=== PATIENT | female | born 1955 | race Caucasian/White ===

== ENCOUNTER 2020-04-24 07:36 | Day surgery (SDC) | payer BC ==
[~2020-04-24 07:36] MED LIST: ESTMET; Provera2.5 MG
== END 2020-04-24 22:37 | disposition home or self-care (01) ==
LOC: MOI MAM 07:36
DX: C50.812 Malignant neoplasm of overlapping sites of left female breast (principal); Z17.0 Estrogen receptor positive status [ER+]
CPT/HCPCS: 19083; 77065; A4648

== ENCOUNTER 2020-05-29 07:42 | Day surgery (SDC) | payer BC ==
[~2020-05-29 07:42] MED LIST changes: +ASPI81CH PO; +CALCIUM PO; +CENTRUM SILVER1 EAC2 PO; +DYAZIDE 37.5-21 EACH PO; +LOSA25 PO
== END 2020-05-29 22:36 | disposition home or self-care (01) ==
LOC: MOI US 07:42
DX: C50.312 Malignant neoplasm of lower-inner quadrant of left female breast (principal); Z79.82 Long term (current) use of aspirin; Z79.899 Other long term (current) drug therapy
CPT/HCPCS: 19285; 77065

== ENCOUNTER 2020-06-04 10:34 | Day surgery (SDC) | payer BC ==
[~2020-06-04] VITALS: Ht 175.3 cm; Wt 77.6 kg
--- NOTE | 2020-06-04 10:55 | NUR ---
Ambulatory in Day Surgery History, Chart, Medications and Allergies reviewed before start of procedure.Patient confirms NPO status and agrees with scheduled surgery. Patient States Post-Procedure ride home has been arranged.
--- NOTE | 2020-06-04 13:18 | NUR ---
Discharge instructions reviewed with patient. Patient verbalizes understanding. Copy given to patient to take home. Patient States Post-Procedure ride home has been arranged. Discharged via wheelchair to private car for ride home.
== END 2020-06-04 13:16 | disposition home or self-care (01) ==
LOC: ORSCMMR 10:34 → ORD 12:00 → ORSCMMR 13:16
PROVIDERS: Surgery
PROC: 0WH803Z Insertion of Infusion Device into Chest Wall, Open Approach (ICD-10-PCS; principal; 2020-06-04 12:00)
DX: C50.312 Malignant neoplasm of lower-inner quadrant of left female breast (principal); I10 Essential (primary) hypertension; Z79.899 Other long term (current) drug therapy; Z79.82 Long term (current) use of aspirin
CPT/HCPCS: A9270-GY; C1728; J0690; J2250; J2704; J7120

== ENCOUNTER 2023-09-08 22:25 | Inpatient (IN) | payer OTHER ==
[~2023-09-08] VITALS: Ht 175.3 cm; Wt 72.4 kg
[2023-09-09] VITALS (15 sets, daily range): BP systolic 99–147; BP diastolic 68–88
[2023-09-09] MEDS ORDERED: ANASTROZOLE1 M7 PO (04:15)
[2023-09-09 06:37] LABS: BASOPHILS ABSOLUTE AUTO 0.09 K/mm3 (0.00-0.23); BASOPHILS PERCENT AUTO 1 % (0-2); EOSINOPHILS ABSOLUTE AUTO 0.01 K/mm3 (0.00-0.68); EOSINOPHILS PERCENT AUTO 0 % (0-6); Hematocrit 38.2 % (33.0-51.0); Hemoglobin 13.7 g/dL (11.5-16.0); IMMATURE GRAN ABSOLUTE AUTO 0.02 K/mm3 (0.00-0.10); IMMATURE GRAN PERCENT AUTO 0 % (0-1); LYMPHOCYTES ABSOLUTE AUTO 0.98 K/mm3 (0.84-5.20); LYMPHOCYTES PERCENT AUTO 10 % (21-46); MONOCYTES ABSOLUTE AUTO 0.58 K/mm3 (0.16-1.47); MONOCYTES PERCENT AUTO 6 % (4-13); Mean Corpuscular HGB 32.5 pg (26.0-34.0); Mean Corpuscular HGB Conc 35.9 g/dL (31.5-36.5); Mean Corpuscular Volume 91 fL (80-100); Mean Platelet Volume 10.6 fL (9.1-12.4); NEUTROPHILS ABSOLUTE AUTO 8.29 K/mm3 (1.96-9.15); NEUTROPHILS PERCENT AUTO 83 % (41-73); Platelet Count 266 K/mm3 (150-400); RDW Coefficient Variation 12.1 % (11.7-14.2); RDW Standard Deviation 40.1 fL (35.1-46.3); Red Blood Cell Count 4.22 M/mm3 (3.80-5.20); White Blood Cell Count 9.97 K/mm3 (4.00-11.30)
[2023-09-09 06:46] LABS: International Normalized Ratio 0.94; Prothrombin Time Results 9.9 Sec (9.7-11.5)
[2023-09-09 07:09] LABS: Albumin, Blood 3.3 g/dL (3.4-5.0); Albumin/Globulin Ratio 0.9 (0.8-1.8); Bilirubin, Total 0.5 mg/dL (0.1-1.0); Bun/Creatinine Ratio 21.4 (12.0-20.0); Calcium, Blood 8.9 mg/dL (8.5-10.1); Creatinine, Blood 0.47 mg/dL (0.40-1.00); Globulin, Blood 3.6 g/dL (2.2-4.0); Potassium, Blood 3.5 mmol/L (3.5-5.5); Total Protein, Blood 6.9 g/dL (6.4-8.2)
--- NOTE | 2023-09-09 17:48 | NUR ---
SHIFT SUMMARY S/P R HIP NAILING, AQUACEL X2 CDI. A&OX4, VSS/RA, YVETTE PO, VOIDING, AMB SBA FWW/GB - TO BRP AND UP TO CHAIR, PAIN MANAGED, IV SL AND ABX PER EMAR. WILL REPORT TO ONCOMING NOC RN.
[2023-09-10 01:35] VITALS: BP 131/79
--- NOTE | 2023-09-10 03:31 | NUR ---
SHIFT SUMMARY NOC. PT POD 1 FOR RIGHT HIP NAILING. PT A/O X4, AQUACEL X2 C/D/I. PT VOIDING AND TOLERATING PO. PT MEDICATED FOR PAIN WITH RELIEF OF SX. PT RESTED WITH EYES CLOSED AND CALL LIGHT IN REACH.
[2023-09-10 05:18] LABS: BASOPHILS ABSOLUTE AUTO 0.06 K/mm3 (0.00-0.23); BASOPHILS PERCENT AUTO 1 % (0-2); EOSINOPHILS ABSOLUTE AUTO 0.25 K/mm3 (0.00-0.68); EOSINOPHILS PERCENT AUTO 4 % (0-6); Hematocrit 31.2 % (33.0-51.0); Hemoglobin 10.7 g/dL (11.5-16.0); IMMATURE GRAN ABSOLUTE AUTO 0.02 K/mm3 (0.00-0.10); IMMATURE GRAN PERCENT AUTO 0 % (0-1); LYMPHOCYTES ABSOLUTE AUTO 1.82 K/mm3 (0.84-5.20); LYMPHOCYTES PERCENT AUTO 28 % (21-46); MONOCYTES ABSOLUTE AUTO 0.68 K/mm3 (0.16-1.47); MONOCYTES PERCENT AUTO 10 % (4-13); Mean Corpuscular HGB 31.8 pg (26.0-34.0); Mean Corpuscular HGB Conc 34.3 g/dL (31.5-36.5); Mean Corpuscular Volume 93 fL (80-100); Mean Platelet Volume 10.7 fL (9.1-12.4); NEUTROPHILS ABSOLUTE AUTO 3.73 K/mm3 (1.96-9.15); NEUTROPHILS PERCENT AUTO 57 % (41-73); Platelet Count 216 K/mm3 (150-400); RDW Standard Deviation 40.8 fL (35.1-46.3); Red Blood Cell Count 3.37 M/mm3 (3.80-5.20); White Blood Cell Count 6.56 K/mm3 (4.00-11.30)
[2023-09-10 05:42] LABS: Bun/Creatinine Ratio 27.8 (12.0-20.0); Calcium, Blood 8.7 mg/dL (8.5-10.1); Creatinine, Blood 0.61 mg/dL (0.40-1.00); Potassium, Blood 3.6 mmol/L (3.5-5.5)
[2023-09-10 07:54] VITALS: BP 115/73
[2023-09-10 14:13] VITALS: BP 135/84
--- NOTE | 2023-09-10 15:28 | NUR ---
SHIFT SUMMARY PT A&OX4, VSS/RA, YVETTE PO, VOIDING/BRP, PAIN MANAGED WITH TORADOL/TYLENOL, AMB SBA FWW/GB, UP TO CHAIR T/O SHIFT, PHYSICAL THERAPY EVAL'D REC HOME W/HH. WILL REPORT TO ONCIMMANUEL FAIR RN.
[2023-09-10 19:45] VITALS: BP 130/74
[2023-09-11 02:44] VITALS: BP 127/77
[2023-09-11 04:31] LABS: Hematocrit 29.1 % (33.0-51.0); Hemoglobin 10.2 g/dL (11.5-16.0)
--- NOTE | 2023-09-11 06:17 | NUR ---
SHIFT SUMMARY NOC. PT POD 2 FOR R HIP NAILING. PT A/O X4, AQUACEL X2 C/D/I WITH SCANT SEROSANG DRAINAGE AT END OF SHIFT. PT MEDICATED FOR PAIN WITH REPORTED RELIEF OF SX. PT VOIDING, TOLERATING PO AND AMBULATES WITH FWW AND SBA TO THE BR. PT RESTED WITH EYES CLOSED AND CALL LIGHT IN REACH.
[2023-09-11 07:15] VITALS: BP 113/76
[2023-09-11] MEDS ORDERED: ACET325 PO (09:54)
[2023-09-11] MEDS ORDERED: OXYC5 PO (09:54)
[2023-09-11] MEDS ORDERED: DOCU100 PO (09:54)
[2023-09-11] MEDS ORDERED: XARELTO10 M5 PO (09:55)
--- NOTE | 2023-09-11 10:26 | NUR ---
hard script sent with friend for pain medications.
--- NOTE | 2023-09-11 12:20 | NUR ---
DISCHARGE POD 2 R HIP NAILING PAIN CONTROLLED WELL PER EMAR. PT AMBULATING WELL WITH WALKER AND GB. DRESSINGS CHANGED PRIOR TO DISCHARGE. SCRIPTS SENT WITH PATIENT. NO FURTHER QUESTIONS AT THIS TIME.
== END 2023-09-11 12:23 | disposition home health service (06) | DRG 481 ==
LOC: ER 22:25 → SURS 09-09 01:25 → MEDS 09-09 01:25 → SURS 09-09 03:54
PROVIDERS: Family Medicine; Orthopaedic Surgery Sports Medicine; ADMIT Student in an Organized Health Care Education/Training Program
PROC: 0QS636Z Reposition Right Upper Femur with Intramedullary Internal Fixation Device, Percutaneous Approach (ICD-10-PCS; principal; 2023-09-09 09:15)
DX: S72.141A Displaced intertrochanteric fracture of right femur, initial encounter for closed fracture (principal); D62 Acute posthemorrhagic anemia; D64.89 Other specified anemias; I10 Essential (primary) hypertension; C50.912 Malignant neoplasm of unspecified site of left female breast; F10.90 Alcohol use, unspecified, uncomplicated; Y90.0 Blood alcohol level of less than 20 mg/100 ml; W01.0XXA Fall on same level from slipping, tripping and stumbling without subsequent striking against object, initial encounter; Y92.59 Other trade areas as the place of occurrence of the external cause; Z79.82 Long term (current) use of aspirin; Z79.811 Long term (current) use of aromatase inhibitors
CPT/HCPCS: 36415; 73502; 73552; 80048; 80053; 83735; 85014; 85018; 85025; 85610; 96365; 96366; 96375; 96376; 97110; 97116; 97161; 97166; 97530; 97535; 99284-25; A9270; C1713; C1769; G0378; J0690; J1885; J2371; J2405; J2704; J3010; J7120

== ENCOUNTER → 2025-03-25 | Outpatient (CLI) | payer OTHER ==
[~2025-03-25] MED LIST changes: +ACET325 PO; +ANASTROZOLE1 M7 PO; +DOCU100 PO; +OXYC5 PO; +XARELTO10 M5 PO
[2025-03-25 08:18] LABS: BASOPHILS ABSOLUTE AUTO 0.12 K/mm3 (0.00-0.23); BASOPHILS PERCENT AUTO 1 % (0-2); EOSINOPHILS ABSOLUTE AUTO 0.22 K/mm3 (0.00-0.68); EOSINOPHILS PERCENT AUTO 2 % (0-6); Hematocrit 47.2 % (33.0-51.0); Hemoglobin 16.4 g/dL (11.5-16.0); IMMATURE GRAN ABSOLUTE AUTO 0.03 K/mm3 (0.00-0.10); IMMATURE GRAN PERCENT AUTO 0 % (0-1); LYMPHOCYTES ABSOLUTE AUTO 1.23 K/mm3 (0.84-5.20); LYMPHOCYTES PERCENT AUTO 13 % (21-46); MONOCYTES ABSOLUTE AUTO 0.85 K/mm3 (0.16-1.47); MONOCYTES PERCENT AUTO 9 % (4-13); Mean Corpuscular HGB Conc 34.7 g/dL (31.5-36.5); Mean Corpuscular Volume 92 fL (80-100); NEUTROPHILS ABSOLUTE AUTO 6.85 K/mm3 (1.96-9.15); NEUTROPHILS PERCENT AUTO 74 % (41-73); NRBC ABSOLUTE 0.00 K/mm3 (0.00-0.02); NRBC Auto 0.0 /100 WBC (0.0-0.2); Platelet Count 302 K/mm3 (150-400); RDW Coefficient Variation 12.3 % (11.7-14.2); RDW Standard Deviation 41.9 fL (35.1-46.3)
[2025-03-25 08:38] LABS: Alanine Aminotransfer (ALT/SGP 53.0 U/L (12-78); Albumin, Blood 4.1 g/dL (3.4-5.0); Albumin/Globulin Ratio 1.0 (0.8-1.8); Anion Gap 13.0 mmol/L (3-11); Aspartate Aminotrans (AST/SGOT 41.0 U/L (12-37); Bilirubin, Total 1.1 mg/dL (0.1-1.0); Blood Urea Nitrogen 16.0 mg/dL (8-24); CO2, Blood 31.0 mmol/L (21-32); Calcium, Blood 8.9 mg/dL (8.5-10.1); Chloride, Blood 95.0 mmol/L (98-108); Creatinine, Blood 0.97 mg/dL (0.40-1.00); Globulin, Blood 4.1 g/dL (2.2-4.0); Glucose, Blood 120.0 mg/dL (70-99); Potassium, Blood 3.3 mmol/L (3.5-5.5); Sodium, Blood 136.0 mmol/L (136-145); Total Protein, Blood 8.2 g/dL (6.4-8.2)
== END ==
LOC: LAB 08:13 → LAB SHORT 08:13
PROVIDERS: Physician Assistant
DX: R10.9 Unspecified abdominal pain (principal)
CPT/HCPCS: 80053; 83690; 85025

== ENCOUNTER → 2025-03-25 | Outpatient (CLI) | payer OTHER | LOC: LAB SHORT 08:57 → LAB 08:57 | DX: R31.9 Hematuria, unspecified (principal) | CPT/HCPCS: 87086 ==